=== PATIENT | female | born 1995 | race Caucasian/White ===

== ENCOUNTER 2022-12-07 23:15 | Emergency (ER) | payer SELFPAY ==
[~2022-12-07] VITALS: Ht 160 cm; Wt 70.8 kg
[~2022-12-07 23:15] MED LIST: ALBUTEROL 0.083% 2.5 MG/3 ML NEBU INH ONE
[2022-12-07 23:22] VITALS: BP 130/74; PULSE 82; RESP 25; TEMP 98.9; O2SAT 95
[2022-12-07] MEDS ORDERED: predniSONE 20 MG TAB PO ONE (23:30)
[2022-12-07] MEDS ORDERED: ALBUTEROL 0.083% 2.5 MG/3 ML NEBU INH ONE (23:39)
[2022-12-07 23:44] VITALS: PULSE 84; RESP 18; O2SAT 94
[2022-12-08] MEDS ORDERED: ALBU0.0912 INH (00:50)
[2022-12-08] MEDS ORDERED: PRED20TA5 PO (00:50)
[2022-12-08 00:56] VITALS: BP 130/74; PULSE 78; RESP 16; TEMP 98.9; O2SAT 97
== END 2022-12-08 00:56 | disposition home or self-care (01) ==
LOC: MED 23:15
DX: J45.901 Unspecified asthma with (acute) exacerbation (principal); Z79.899 Other long term (current) drug therapy
CPT/HCPCS: 94640; 99283; J7512; J7613

== ENCOUNTER 2023-09-09 20:55 | Emergency (ER) | payer SELFPAY ==
[~2023-09-09] VITALS: Ht 157.5 cm; Wt 65.8 kg
[~2023-09-09 20:55] MED LIST changes: +ALBU0.0912 INH; -ALBUTEROL 0.083% 2.5 MG/3 ML NEBU INH ONE; +PRED20TA5 PO
[2023-09-09 21:11] VITALS: BP 129/81; PULSE 94; RESP 18; TEMP 98.2
[2023-09-10 00:10] VITALS: O2SAT 98
[2023-09-10 00:54] LABS: BASOPHILS % (AUTO) 0.1 % (0.0-2.0); EOSINOPHILS # (AUTO) 0.4 K/uL (0-0.4); EOSINOPHILS % (AUTO) 7.3 % (0.0-4.0); HEMATOCRIT 40.2 % (36-48); HEMOGLOBIN 14.1 g/dL (12.0-16.0); LYMPHOCYTES # (AUTO) 1.8 K/uL (2.5-16.5); LYMPHOCYTES % (AUTO) 36.8 % (20.5-51.1); MEAN CORPUSCULAR HEMOGLOBIN 34 pg (27-31); MEAN CORPUSCULAR HGB CONC 35 g/dL (33-37); MEAN CORPUSCULAR VOLUME 97.4 fL (80-94); MONOCYTES # (AUTO) 0.6 K/uL (0.8-1.0); MONOCYTES % (AUTO) 11.4 % (1.7-9.3); NEUTROPHILS # (AUTO) 2.2 K/uL (1.8-7.7); NEUTROPHILS % (AUTO) 44.4 % (42.2-75.2); PLATELET COUNT (AUTO) 232 K/uL (140-450); RED BLOOD CELL COUNT(AUTO) 4.13 MIL/uL (4.20-5.40); RED CELL DISTRIBUTION WIDTH 12.1 % (11.6-13.7); WHITE BLOOD COUNT (AUTO) 4.9 K/uL (4.8-10.8)
[2023-09-10 01:08] LABS: ANION GAP 16.4 (8-16); CALCIUM 8.8 mg/dL (8.5-10.1); CREATININE 0.9 mg/dL (0.6-1.3); POTASSIUM 3.4 mmol/L (3.5-5.1)
[2023-09-10 01:14] LABS: ALBUMIN 3.9 g/dL (3.4-5.0); BILIRUBIN,DIRECT 0.2 mg/dL (0.0-0.3); TOTAL BILIRUBIN 0.5 mg/dL (0.0-1.0); TOTAL PROTEIN, SERUM 8.1 g/dL (6.4-8.2)
[2023-09-10] MEDS: NACL 0.9% 1,000 ML IV ONE (01:34)
[2023-09-10 01:51] VITALS: BP 124/78; PULSE 69; RESP 14; O2SAT 98
[2023-09-10 03:53] LABS: APPEARANCE,URINE CLEAR (CLEAR); BILIRUBIN,URINE NEGATIVE (NEGATIVE); BLOOD, URINE TRACE-I (NEGATIVE); COLOR,URINE YELLOW (YELLOW); LEUKOCYTE ESTERASE ,URINE NEGATIVE (NEGATIVE); NITRITE, URINE NEGATIVE (NEGATIVE); PH,URINE 6.5 (5.0-9.0); PROTEIN,URINE NEGATIVE (NEGATIVE); UGLUCOSE NEGATIVE (NEGATIVE)
[2023-09-10 04:05] LABS: BACTERIA,URINE 10-30 (MOD) /HPF (None Seen); WBC,URINE 0-5 /HPF (0-5)
[2023-09-10 04:06] LABS: MUCUS,URINE 1+ /LPF (None Seen); SQUAMOUS EPITHELIAL CELL,UR 0-3 (FEW) /LPF (0-3 (FEW))
[2023-09-10] MEDS ORDERED: cefTRIAXone 1,000 MG VIAL ONE (04:48)
[2023-09-10] MEDS ORDERED: NITR100C7 PO (06:13)
== END 2023-09-10 06:15 | disposition home or self-care (01) ==
LOC: MED 20:55
DX: N39.0 Urinary tract infection, site not specified (principal); R53.1 Weakness; J45.909 Unspecified asthma, uncomplicated; Z79.899 Other long term (current) drug therapy
CPT/HCPCS: 36415; 80048; 80076; 81001; 85025; 87086; 96361; 96365; 99284; J0696; J7030